=== PATIENT | male | born 1975 | race Two or more races ===

== ENCOUNTER 2019-04-16 15:42 | Emergency (ER) | payer BC, OTHER ==
[~2019-04-16] VITALS: Ht 165.1 cm; Wt 133.4 kg
[2019-04-16 16:10] VITALS: BP 147/59
[2019-04-16] MEDS ORDERED: KETOROLAC TROMETH 60MG/2ML VIAL IM ONE (16:45)
[2019-04-16] MEDS ORDERED: METHOCARBAMOL 500 MG TAB PO ONE (16:45)
[2019-04-16] MEDS ORDERED: PROMETHAZINE HCL 25 MG/ML 1ML IM ONE (17:00)
[2019-04-16] MEDS ORDERED: MORPHINE SULFATE 10 MG/ML INJ 1ML SDV IM ONE (17:00)
[2019-04-16] MEDS ORDERED: HYDROcodone-ACET 10/325MG TAB PO ONE (18:30)
== END 2019-04-16 18:44 | disposition home or self-care (01) ==
LOC: EDBD 15:42 → ER 15:54
DX: M48.061 Spinal stenosis, lumbar region without neurogenic claudication (principal); M51.26 Other intervertebral disc displacement, lumbar region; I10 Essential (primary) hypertension
CPT/HCPCS: 72131; 96372; 99284; J1885; J2270; J2550